=== PATIENT | female | born 1995 ===

== ENCOUNTER 2018-03-16 16:47 | Emergency (ER) | payer OTHER ==
--- NOTE | 2018-03-16 17:55 | ED PDOC ---
HPI: Abdomen Time Seen by Provider: 03/16/18 17:19 Chief Complaint (Nursing): Abdominal Pain Chief Complaint (Provider): Abdominal Pain History Per: Patient History/Exam Limitations: no limitations Onset/Duration Of Symptoms: Hrs (afternoon) Current Symptoms Are (Timing): Still Present Location Of Pain/Discomfort: Suprapubic Quality Of Discomfort: "Pain" Associated Symptoms: denies: Fever, Nausea, Vomiting, Diarrhea, Urinary Symptoms Additional Complaint(s): 22 year old female with a history of ovarian cysts presents to the ED complaining of constant lower abdominal pain onset this afternoon. She reports pain radiates to lower back, but denies any vomiting, nausea, fever, dysuria, diarrhea, or any other medical complaints. Patient's menstrual cycle began today associated mild vaginal bleeding. PMD: none provided. Abnormal Vaginal Bleeding: No Last Menstral Period: current Past Medical History Reviewed: Historical Data, Nursing Documentation, Vital Signs Vital Signs: Last Vital Signs Temp 99 F 03/16/18 21:25 Pulse 66 03/16/18 21:25 Resp 14 03/16/18 21:25 BP 113/71 03/16/18 21:25 Pulse Ox 100 03/16/18 21:25 - Medical History PMH: Gastritis Denies: Chronic Kidney Disease Other PMH: ovarian cyst - Surgical History Surgical History: No Surg Hx - Family History Family History: States: Unknown Family Hx - Social History Alcohol: None Drugs: Denies - Home Medications Home Medications: Ambulatory Orders Medication Instructions Recorded Fluticasone Nasal [Flonase] 1 actuation NS BID #1 bottle 12/18/15 Ibuprofen 600 mg PO Q6 PRN #15 tablet 12/18/15 Oseltamivir [Tamiflu] 75 mg PO BID #9 cap 12/18/15 Penicillin VK [Penicillin VK Tab] 500 mg PO Q12 #19 tab 12/18/15 Promethazine HCl/Codeine 5 ml PO Q6 PRN #120 ml 12/18/15 [Promethazine HCl-Codeine Phosphate 10 mg/5 ml] Ibuprofen [Motrin Tab] 600 mg PO Q6 #30 tab 03/16/18 Nitrofurantoin Macrocrystals 100 mg PO BID 5 Days cap 03/16/18 [Macrobid] - Allergies Allergies/Adverse Reactions: Allergies Allergy/AdvReac Type Severity Reaction Status Date / Time No Known Allergies Allergy Verified 12/18/15 00:28 Review of Systems ROS Statement: Except As Marked, All Systems Reviewed And Found Negative Constitutional: Negative for: Fever Gastrointestinal: Positive for: Abdominal Pain. Negative for: Nausea, Vomiting , Diarrhea Genitourinary Female: Positive for: Vaginal Bleeding (mild). Negative for: Dysuria Physical Exam - Reviewed Nursing Documentation Reviewed: Yes Vital Signs Reviewed: Yes - Physical Exam Appears: Positive for: Non-toxic, No Acute Distress (comfortable) Head Exam: Positive for: ATRAUMATIC, NORMOCEPHALIC Skin: Positive for: Normal Color, Warm, Dry Eye Exam: Positive for: EOMI, Normal appearance, PERRL ENT: Positive for: Normal ENT Inspection Neck: Positive for: Normal, Painless ROM, Supple Cardiovascular/Chest: Positive for: Regular Rate, Rhythm. Negative for: Murmur Respiratory: Positive for: Normal Breath Sounds. Negative for: Respiratory Distress Gastrointestinal/Abdominal: Positive for: Tenderness (suprapubic tenderness) Back: Positive for: Normal Inspection Extremity: Positive for: Normal ROM (upper and lower) Neurologic/Psych: Positive for: Alert, Oriented (x3). Negative for: Motor/ Sensory Deficits - Laboratory Results Result Diagrams: 03/16/18 17:53 03/16/18 17:53 - ECG O2 Sat by Pulse Oximetry: 99 (RA) Pulse Ox Interpretation: Normal Medical Decision Making Medical Decision Making: Time: 17:41 Initial Impression: lower abdominal pain Differential diagnoses include but are not limited to: UTI, ovarian cyst, ovarian torsion, and uterine fibroids dysmenorrhea, less likely appendicitis diverticulitis Initial Plan: --CMP --Urine preg --Urine dip --CBC with differentials --Pelvis/transvaginal US --Transvaginal US Time: 17:53 --Negative Time: 18:20 --Rocephin 100ml IVP --Urine culture --NS Time: 19:00 --Patient endorsed to Dr. Nunn by this provider, pending labs and US. Scribe Attestation: Documented by Viki Joseph, acting as a scribe for Nini Otto MD Provider Scribe Attestation: All medical record entries made by the Scribe were at my direction and personally dictated by me. I have reviewed the chart and agree that the record accurately reflects my personal performance of the history, physical exam, medical decision making, and the department course for this patient. I have also personally directed, reviewed, and agree with the discharge instructions and disposition. Disposition - Clinical Impression Clinical Impression: UTI (urinary tract infection), Ruptured ovarian cyst - Patient ED Disposition Is Patient to be Admitted: Transfer of Care Counseled Patient/Family Regarding: Studies Performed, Diagnosis - Disposition [facility] Disposition: Transfer of Care Disposition Time: 19:00 Condition: STABLE Prescriptions: Ibuprofen [Motrin Tab] 600 mg PO Q6 #30 tab Nitrofurantoin Macrocrystals [Macrobid] 100 mg PO BID 5 Days cap Instructions: Ovarian Cysts, Urinary Tract Infection, Adult (DC)
[2018-03-16 17:58] LABS: BASO % 0.4 % (0.0-2.0); EOS # 0.1 K/uL (0.0-0.7); EOS % 1.3 % (0.0-4.0); HEMOGLOBIN 12.2 g/dL (12.0-16.0); LYMPH # 1.2 K/uL (1.0-4.3); LYMPH % 11.4 % (20.0-40.0); MEAN CELL VOLUME 84.3 fl (81.0-99.0); MEAN CORPUSCULAR HEMOGLOBIN 28.5 pg (27.0-31.0); MEAN CORPUSCULAR HGB CONC 33.8 g/dL (33.0-37.0); MEAN PLATELET VOLUME 9.3 fl (7.2-11.7); MONO # 0.4 K/uL (0.0-0.8); MONO % 3.9 % (0.0-10.0); NEUT # 9.1 K/uL (1.8-7.0); NRBC % 0.1 % (0.0-0.0); RBC 4.29 Mil/uL (3.80-5.20); RED CELL DISTRIBUTION WIDTH 14.1 % (11.5-14.5)
[2018-03-16 18:11] LABS: BLOOD UREA NITROGEN 10 mg/dl (7-17); CALCIUM 9.1 mg/dL (8.4-10.2); GFR AFRICAN-AMERICAN > 60; GFR NON-AFRICAN AMERICAN > 60
[2018-03-16 18:18] LABS: SQUAMOUS EPITHIAL 2 /hpf (0-5); URINE BACTERIA RARE (<OCC); URINE BILIRUBIN NEGATIVE (NEGATIVE); URINE BLOOD LARGE (NEGATIVE); URINE CLARITY CLOUDY (Clear); URINE COLOR YELLOW (YELLOW); URINE GLUCOSE (UA) NEG (Normal); URINE LEUKOCYTE ESTERASE TRACE Leu/uL (Negative); URINE PROTEIN NEGATIVE (NEGATIVE); URINE UROBILINOGEN 0.2-1.0 mg/dL (0.2-1.0)
[2018-03-16] MEDS ORDERED: cefTRIAXone (Rocephin) 1 gm Inj ONE (18:41)
--- NOTE | 2018-03-16 19:52 | ED PDOC ---
- Laboratory Results Result Diagrams: 03/16/18 17:53 03/16/18 17:53 - ECG O2 Sat by Pulse Oximetry: 99 (RA) Pulse Ox Interpretation: Normal Medical Decision Making Medical Decision Making: Time: 19:00 --Patient endorsed to this provider by Dr. Otto, pending labs and US. Time: 20:05 US Pelvis, Transvaginal: FINDINGS: Uterus: Uterus is anteflexed. The uterus measures approximately 6.5 x 3.4 x 4.3 cm. Endometrium measures approximately 10 mm in width. Right ovary: Right ovary measures approximately 1.7 x 1.2 x 1.6 cm.There is expected blood flow on Doppler imaging Left ovary: Left ovary measures approximately 1.6 x 1 x 1.4 cm.There is expected blood flow on Doppler imaging Free fluid: There is a very small amount of free fluid in the cul-de-sac. Bladder: Urinary bladder is only partially distended. 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 I have reviewed the chart and agree that the record accurately reflects my personal performance of the history, physical exam, medical decision making, and the department course for this patient. I have also personally directed, reviewed, and agree with the discharge instructions and disposition. Disposition - Clinical Impression Clinical Impression: UTI (urinary tract infection), Ruptured ovarian cyst - POA Present On Arrival: None - Disposition [facility]errals[facility] [[facility]] Disposition: Routine/Home Disposition Time: 20:40 Condition: IMPROVED Prescriptions: Ibuprofen [Motrin Tab] 600 mg PO Q6 #30 tab Nitrofurantoin Macrocrystals [Macrobid] 100 mg PO BID 5 Days cap Instructions: Urinary Tract Infection, Adult (DC), Ovarian Cysts Forms: [employer] ([place])
[2018-03-16] MEDS: Sodium Chloride 0.9% 1,000 ML IV STA (19:53)
--- NOTE | 2018-03-16 20:04 | US ---
EXAM: US Pelvis Complete, Transabdominal US Pelvis, Transvaginal US Duplex Arterial/Venous of the Pelvis, Complete EXAM DATE/TIME: 03/16/2018 5:46 PM CLINICAL HISTORY: 22 years old, female; Pain; Abdominal pain and pelvic pain; Lower abdomen; Prior surgery; Surgery date: 6+ months; Surgery type: Surgery for ovarian cyst; Additional info: Lower abd pain for 2 days; LMP 03/16/18 TECHNIQUE: Real-time transabdominal and transvaginal pelvic ultrasound (complete) with image documentation. Transvaginal imaging was used for better evaluation of the endometrium and adnexa. Real-time duplex ultrasound scan of the arterial and venous flow of the pelvis with color Doppler flow and spectral waveform analysis. COMPARISON: There are no prior studies for comparison. FINDINGS: Uterus: Uterus is anteflexed. The uterus measures approximately 6.5 x 3.4 x 4.3 cm. Endometrium measures approximately 10 mm in width. Right ovary: Right ovary measures approximately 1.7 x 1.2 x 1.6 cm.There is expected blood flow on Doppler imaging Left ovary: Left ovary measures approximately 1.6 x 1 x 1.4 cm.There is expected blood flow on Doppler imaging Free fluid: There is a very small amount of free fluid in the cul-de-sac. Bladder: Urinary bladder is only partially distended. IMPRESSION: Minimal fluid in the pelvis, physiologic versus recent cyst rupture, study is otherwise normal
[2018-03-16 22:22] VITALS: BP 113/71; PULSE 66; RESP 14; TEMP 99
[2018-03-17 10:35] VITALS: O2SAT 99
== END 2018-03-16 21:30 | disposition home or self-care (01) ==
LOC: H.ER 16:47
DX: N39.0 Urinary tract infection, site not specified (principal); N83.209 Unspecified ovarian cyst, unspecified side
CPT/HCPCS: 76830; 76856; 80048; 81003; 81025; 85025; 87086; 87181; 96361; 96365; 99284; J0696; J7030